=== PATIENT | female | born 1985 | race Caucasian/White ===

== ENCOUNTER 2017-04-10 15:23 | Emergency (ER) | payer OTHER ==
[~2017-04-10] VITALS: Ht 147.3 cm; Wt 85.8 kg
[~2017-04-10 15:23] MED LIST: ACET-787 PO
[2017-04-10 15:27] VITALS: BP 138/90
--- NOTE | 2017-04-10 15:47 | NUR ---
PT AMBULATED TO BED 11.
--- NOTE | 2017-04-10 15:50 | NUR ---
31F BIB MOTHER C/O RASH TO BL ARMS X 1 WEEK. PT STATES " I THINK SOMETHING BIT ME".DENIES N/V/D; SKIN IS PINK/WARM/DRY; AAOX4 WITH EVEN AND STEADY GAIT; LUNGS CLEAR BL; PATIENT STATES PAIN OF 0/10 AT THIS TIME; PATIENT POSITIONED FOR COMFORT; HOB ELEVATED; BEDRAILS UP X2; BED DOWN. ER MD MADE AWARE OF PT STATUS.
--- NOTE | 2017-04-10 15:54 | NUR ---
Dr. Ferrara evaluating patient at bedside.
[2017-04-10] MEDS ORDERED: diphenhydrAMINE 50 MG/ML VIAL IM ONE (16:00)
[2017-04-10] MEDS ORDERED: methylPREDNISolone SS 125 MG in WATER STERILE 2 ML IM ONE (16:00)
--- NOTE | 2017-04-10 16:41 | NUR ---
Patient appears to be resting comfortably in bed. Vital Signs within normal limits. Respirations even and unlabored.WILL CONTINUE TO MONITOR.
[2017-04-10 16:50] VITALS: BP 127/80
--- NOTE | 2017-04-10 16:50 | NUR ---
Patient discharged with v/s stable. Written and verbal after care instructions given and explained. Patient alert, oriented and verbalized understanding of instructions. Ambulatory with steady gait. All questions addressed prior to discharge. ID band removed. Patient advised to follow up with PMD. Rx of ATARAX & PREDNISONE given. Patient educated on indication of medication including possible reaction and side effects. Opportunity to ask questions provided and answered.
== END 2017-04-10 16:50 | disposition home or self-care (01) ==
LOC: MED 15:23
DX: S80.861A Insect bite (nonvenomous), right lower leg, initial encounter (principal); S80.862A Insect bite (nonvenomous), left lower leg, initial encounter; S40.862A Insect bite (nonvenomous) of left upper arm, initial encounter; S40.861A Insect bite (nonvenomous) of right upper arm, initial encounter; W57.XXXA Bitten or stung by nonvenomous insect and other nonvenomous arthropods, initial encounter; Y93.89 Activity, other specified; Y92.89 Other specified places as the place of occurrence of the external cause; Y99.8 Other external cause status
CPT/HCPCS: 96372; 99284; J1200; J2930

== ENCOUNTER 2018-02-04 19:31 | Emergency (ER) | payer OTHER ==
[~2018-02-04] VITALS: Ht 147.3 cm; Wt 89.8 kg
[2018-02-04 19:40] VITALS: BP 144/90
--- NOTE | 2018-02-04 19:44 | NUR ---
TO LOBBY AMBULATORY, A/W BED, KENDRICK LEVINE NOTED
--- NOTE | 2018-02-04 20:14 | NUR ---
PT PRESENTS TO ED WITH PAIN TO CORNER OF RIGHT FIRST TOE X2 DAYS WITH 8/10 PAIN. REDNESS, EDEMA, AND SCANT BLOOD PRESENT. CMS INTACT. PT STATES THROBBING SEVERE PAIN WITH AMBULATION. VSS. PT POSITIONED IN BED FOR COMFORT. ER MD AWARE. CONTINUE TO MONITOR.
--- NOTE | 2018-02-04 20:14 | NUR ---
PT TAKEN TO BED 2
[2018-02-04] MEDS ORDERED: LIDOCAINE 2% 1000 MG/50 ML VIAL INJ ONE (20:55)
[2018-02-04] MEDS ORDERED: NEOMYCIN/POLYMYXIN/BACITRACIN 0.9 GM/1 PKT TP ONE (20:55)
--- NOTE | 2018-02-04 21:00 | NUR ---
DR KINCAID AT BEDSIDE PERFORMING TOENAIL REMOVAL.
--- NOTE | 2018-02-04 21:19 | NUR ---
PT R BIG TOE APPLIED NEOSPORIN, WRAPPED WITH NON ADHERENT DRESSING AND WRAPPED IN ROLLER BANDAGE. +CSM
--- NOTE | 2018-02-04 21:19 | NUR ---
DR KINCAID COMPLETED PROCEUDRE. PT TOLERATED THE PROCEDURE WELL. FOOT CLEANED, ATBX OINT APPLIED, WRAPPED WITH NON-ADHESIVE BALTAZAR BY EMT. VSS. CONTINUE TO MONITOR.
[2018-02-04 21:39] VITALS: BP 144/90
== END 2018-02-04 21:39 | disposition home or self-care (01) ==
LOC: MED 19:31
DX: L60.0 Ingrowing nail (principal); E03.9 Hypothyroidism, unspecified
CPT/HCPCS: 11730; 99283; J2001

== ENCOUNTER 2018-02-06 15:51 | Emergency (ER) | payer OTHER ==
[~2018-02-06] VITALS: Ht 147.3 cm; Wt 81.6 kg
[2018-02-06 16:00] VITALS: BP 128/77
--- NOTE | 2018-02-06 16:11 | NUR ---
Evin diazlana in EDM - 02/06/18 at 1611 by JEANNETTE Rash to lisy lower legs and upper arms x 3 days, +pruritis, denies n/v/d/fevers. States "they burn in sensation" Denies new meds/food med hx:sciatica rx: norco, ibuprofen,
--- NOTE | 2018-02-06 16:12 | NUR ---
brought in by freeman for rt foot wound check, was seen here 2 days ago and informed to return for wound check. rt big toe., appears dry, no acitve bleeding, no c/o pain at this time. med hx: mental retardation rx: anbx
--- NOTE | 2018-02-06 16:45 | NUR ---
AAO PT WITH FAMILY AT BEDSIDE NO ACUTE DISTRESS WAITING FOR MD'S ORDERS
--- NOTE | 2018-02-06 17:15 | NUR ---
PT UPDATED BY DR MARTINEZ AT BEDSIDE
[2018-02-06 18:01] VITALS: BP 126/71
--- NOTE | 2018-02-06 18:01 | NUR ---
PT LEFT WITHOUT DISCHARGE INSTRUCTIONS, DR MARTINEZ NOTIFIED
== END 2018-02-06 18:01 | disposition left against medical advice (07) ==
LOC: MED 15:51
DX: Z48.01 Encounter for change or removal of surgical wound dressing (principal); E03.9 Hypothyroidism, unspecified; F79 Unspecified intellectual disabilities
CPT/HCPCS: 99283

== ENCOUNTER 2018-05-05 08:58 | Emergency (ER) | payer OTHER ==
[~2018-05-05] VITALS: Ht 152.4 cm; Wt 91.6 kg
[2018-05-05 09:11] VITALS: BP 132/87
[2018-05-05] MEDS: LIDOCAINE 2% 1000 MG/50 ML VIAL INJ ONE (09:53)
[2018-05-05] MEDS: DEXAMETHASONE 10 MG/ML VIAL IM ONE (09:53)
[2018-05-05 10:08] VITALS: BP 132/87
== END 2018-05-05 10:09 | disposition home or self-care (01) ==
LOC: MED 08:58
DX: M54.41 Lumbago with sciatica, right side (principal); E03.9 Hypothyroidism, unspecified; R03.0 Elevated blood-pressure reading, without diagnosis of hypertension; Z79.899 Other long term (current) drug therapy
CPT/HCPCS: 20552; 99284; J1100; J2001

== ENCOUNTER 2018-06-18 16:40 | Emergency (ER) | payer OTHER ==
[~2018-06-18] VITALS: Ht 160 cm; Wt 89.4 kg
[2018-06-18 16:59] VITALS: BP 165/78
[2018-06-18 18:23] VITALS: BP 151/70
== END 2018-06-18 18:23 | disposition home or self-care (01) ==
LOC: MED 16:40
DX: M54.31 Sciatica, right side (principal); E03.9 Hypothyroidism, unspecified; G80.9 Cerebral palsy, unspecified; Z79.891 Long term (current) use of opiate analgesic
CPT/HCPCS: 99283

== ENCOUNTER 2018-07-13 14:59 | Emergency (ER) | payer OTHER ==
[~2018-07-13] VITALS: Ht 144.8 cm; Wt 83.9 kg
[2018-07-13 15:19] VITALS: BP 153/91
--- NOTE | 2018-07-13 15:30 | NUR ---
C32/F BIB MOM C/O R FOOT PAIN X 2 WEEKS, - REDNESS, - SWELLING, HURT WITH AMBULATION , NO INJURY OR TRAUMA PMH: THYROIDS MEDS: NONE PATIENT STATES PAIN OF 4/10 AT THIS TIME. PATIENT POSITIONED FOR COMFORT; HOB ELEVATED; BEDRAILS UP X2; BED DOWN. ER MD MADE AWARE OF PT STATUS.
[2018-07-13 16:15] VITALS: BP 130/85
--- NOTE | 2018-07-13 16:15 | NUR ---
Patient discharged with v/s stable. Written and verbal after care instructions given and explained. Patient alert, oriented and verbalized understanding of instructions. Ambulatory with by parent with walker. All questions addressed prior to discharge. ID band removed. Patient advised to follow up with PMD. Rx of CURAD MEDIPLAST AND ACETAMINOPHEN 500MG given. Patient educated on indication of medication including possible reaction and side effects. Opportunity to ask questions provided and answered.
== END 2018-07-13 16:15 | disposition home or self-care (01) ==
LOC: MED 14:59
DX: L84 Corns and callosities (principal); E07.9 Disorder of thyroid, unspecified; G80.9 Cerebral palsy, unspecified; Z79.891 Long term (current) use of opiate analgesic
CPT/HCPCS: 99282

== ENCOUNTER 2019-01-04 13:49 | Emergency (ER) | payer OTHER ==
[~2019-01-04] VITALS: Ht 154.9 cm; Wt 99.8 kg
[2019-01-04 13:58] VITALS: BP 132/73
--- NOTE | 2019-01-04 13:58 | NUR ---
PATIENT AMBULATED TO ER BED 3.
--- NOTE | 2019-01-04 14:12 | NUR ---
PT C/O BEE STING TO R FOREARM SINCE YESTERDAY. NOTED SWELLING AND REDNESS TO R ARM. STATES OF HAVING ITCHING AND PAIN TO TOUCH AT THE SITE. DENIES ANY N, V , FEVRE OR CHILLS AT THIS TIME. NO RESP DISTRESS, 98% ON RA . LYING COMFORTABLY IN HER BED. PT IS AAOX4, DENIES ANY MEDICAL . HAS SLIGHT MUMBLING/SLURRY SPEECH AT BASELINE. ABLE TO COMMUNICATE AND COMPREHENDS THE CONVERSATION. ER MD TO SEE THE PT. PMH--MENTAL DELAY NKA
[2019-01-04] MEDS ORDERED: DEXAMETHASONE 10 MG/ML VIAL IM ONE (14:25)
[2019-01-04 14:57] VITALS: BP 132/73
--- NOTE | 2019-01-04 14:57 | NUR ---
Patient discharged with v/s stable. Written and verbal after care instructions given and explained. Patient alert, oriented and verbalized understanding of instructions. Ambulatory with steady gait. All questions addressed prior to discharge. ID band removed. Patient advised to follow up with PMD. Rx of DIPHENHYDRAMINE, KEFLES, PREDNISONE given. Patient educated on indication of medication including possible reaction and side effects. Opportunity to ask questions provided and answered.
== END 2019-01-04 14:57 | disposition home or self-care (01) ==
LOC: MED 13:49
DX: T63.441A Toxic effect of venom of bees, accidental (unintentional), initial encounter (principal); E07.9 Disorder of thyroid, unspecified; Z79.899 Other long term (current) drug therapy; Y92.89 Other specified places as the place of occurrence of the external cause
CPT/HCPCS: 96372; 99283; J1100; Q0163

== ENCOUNTER 2019-05-10 14:22 | Emergency (ER) | payer OTHER ==
[~2019-05-10] VITALS: Ht 147.3 cm; Wt 93.1 kg
[2019-05-10 14:35] VITALS: BP 105/62
--- NOTE | 2019-05-10 14:40 | NUR ---
33/F BIB FAMILY W/ C/O COUGH , SORE THROAT X 2 WEEKS. HX: THYROID DZ. PATIENT STATES PAIN OF 10/10 AT THIS TIME. PATIENT POSITIONED FOR COMFORT; HOB ELEVATED; BEDRAILS UP X1; BED DOWN. ER MD MADE AWARE OF PT STATUS.
--- NOTE | 2019-05-10 14:51 | NUR ---
X RAY AT BEDSIDE
--- NOTE | 2019-05-10 15:00 | NUR ---
Patient being evaluated by JERED BARBOUR at bedside.
[2019-05-10 17:21] LABS: BASOPHILS # (AUTO) 0.1 K/uL (0.00-0.22); BASOPHILS % (AUTO) 0.5 % (0.0-2.0); EOSINOPHILS # (AUTO) 0.1 K/uL (0-0.4); EOSINOPHILS % (AUTO) 0.9 % (0.0-4.0); HEMATOCRIT 42.8 % (36-48); HEMOGLOBIN 13.6 g/dL (12.0-16.0); LYMPHOCYTES # (AUTO) 2.7 K/uL (2.5-16.5); LYMPHOCYTES % (AUTO) 23.1 % (20.5-51.1); MEAN CORPUSCULAR HEMOGLOBIN 26 pg (27-31); MEAN CORPUSCULAR HGB CONC 32 g/dL (33-37); MEAN CORPUSCULAR VOLUME 82.4 fL (80-94); MONOCYTES # (AUTO) 0.8 K/uL (0.8-1.0); MONOCYTES % (AUTO) 7.1 % (1.7-9.3); NEUTROPHILS # (AUTO) 7.9 K/uL (1.8-7.7); NEUTROPHILS % (AUTO) 68.4 % (42.2-75.2); PLATELET COUNT (AUTO) 308 K/uL (140-450); RED CELL DISTRIBUTION WIDTH 14.1 % (11.6-13.7); WHITE BLOOD COUNT (AUTO) 11.5 K/uL (4.8-10.8)
[2019-05-10 18:08] LABS: CARBON DIOXIDE 30.3 mmol/L (21-32); CREATININE 0.8 mg/dL (0.6-1.3); POTASSIUM 3.3 mmol/L (3.5-5.1)
[2019-05-10 18:15] LABS: ALBUMIN 2.9 g/dL (3.4-5.0); TOTAL BILIRUBIN 0.1 mg/dL (0.0-1.0)
--- NOTE | 2019-05-10 18:31 | NUR ---
PT TAKEN TO CT VIA W/C, ACCOMPANIED BY COMMUNITY SERVICE MANAGER.
--- NOTE | 2019-05-10 19:01 | NUR ---
Pt report given to TU ZAIDI. Transfer of care at this time.
--- NOTE | 2019-05-10 19:06 | NUR ---
RECEIVED REPORT FROM DYAN GARDUNO. TRANSFER OF CARE AT THIS TIME.
[2019-05-10] MEDS ORDERED: cefTRIAXone 1,000 MG in LIDOCAINE MPF 1% 2.1 ML IM ONE (19:25)
[2019-05-10 19:50] VITALS: BP 118/68
--- NOTE | 2019-05-10 19:51 | NUR ---
CPatient discharged with v/s stable. Written and verbal after care instructions given and explained. Patient alert, oriented and verbalized understanding of instructions. Ambulatory with steady gait. All questions addressed prior to discharge. ID band removed. Patient advised to follow up with PMD. Rx of AZITHROMYCIN AND PROMETHAZINE given. Patient educated on indication of medication including possible reaction and side effects. Opportunity to ask questions provided and answered.
== END 2019-05-10 19:51 | disposition home or self-care (01) ==
LOC: MED 14:22
DX: J18.9 Pneumonia, unspecified organism (principal); E07.9 Disorder of thyroid, unspecified; Z79.899 Other long term (current) drug therapy
CPT/HCPCS: 36415; 71045; 71270; 80053; 81002; 81025; 85025; 96372; 99284; J0696; J2001; Q0092; Q9967

== ENCOUNTER 2019-10-29 18:17 | Emergency (ER) | payer OTHER ==
[~2019-10-29] VITALS: Ht 147.3 cm; Wt 91.6 kg
[~2019-10-29 18:17] MED LIST changes: -ACET-787 PO; +HYDR-5191 PO
[2019-10-29 18:21] VITALS: BP 133/64
--- NOTE | 2019-10-29 18:24 | NUR ---
PT TAKEN TO BED 12.
--- NOTE | 2019-10-29 18:30 | NUR ---
PT C/O BEE STING TO HIS LEFT DORSAL FOOT APPRO 2 HOURS AGO WITH BURNING AND ITCHY SENSATIONS, +1 EDEMA, AND ERYTHEMA. DENIES NUMBNESS OR TINGLING ON THE LEFT FOOT. PATIENT STATES PAIN OF 8/10 AT THIS TIME; VSS; PATIENT POSITIONED FOR COMFORT; HOB ELEVATED; BEDRAILS UP X1; BED DOWN. ER MD MADE AWARE OF PT STATUS.
[2019-10-29] MEDS ORDERED: predniSONE 20 MG TAB PO ONE (18:45)
[2019-10-29] MEDS ORDERED: FAMOTIDINE 20 MG TAB PO ONE (18:45)
--- NOTE | 2019-10-29 18:58 | NUR ---
COLD PACK PROVIDED TO PT AND PLACED ON THE AFFECTED AREA.
--- NOTE | 2019-10-29 19:11 | NUR ---
Pt report given to DYAN Wu. Transfer of care at this time.
--- NOTE | 2019-10-29 19:11 | NUR ---
Pt report RECEIVED FROM DYAN MORTENSEN. ASSUMED care OF PT at this time.
[2019-10-29 19:27] VITALS: BP 129/61
--- NOTE | 2019-10-29 19:27 | NUR ---
Patient discharged with v/s stable. Written and verbal after care instructions given and explained. Patient alert, oriented and verbalized understanding of instructions. Ambulatory with steady gait. All questions addressed prior to discharge. ID band removed. Patient advised to follow up with PMD. Rx of BENEDRYL, PREDNSONE given. Patient educated on indication of medication including possible reaction and side effects. Opportunity to ask questions provided and answered.
== END 2019-10-29 19:27 | disposition home or self-care (01) ==
LOC: MED 18:17
DX: T63.441A Toxic effect of venom of bees, accidental (unintentional), initial encounter (principal); L25.9 Unspecified contact dermatitis, unspecified cause; Y92.89 Other specified places as the place of occurrence of the external cause
CPT/HCPCS: 99284; J7512; Q0163

== ENCOUNTER 2020-03-13 08:09 | Emergency (ER) | payer OTHER ==
[~2020-03-13] VITALS: Ht 149.9 cm; Wt 91.2 kg
[2020-03-13 08:17] VITALS: BP 126/81
[2020-03-13] MEDS ORDERED: IBUPROFEN 400 MG TAB PO ONE (09:10)
== END 2020-03-13 09:48 | disposition home or self-care (01) ==
LOC: MED 08:09
DX: M54.5 Low back pain (principal); E03.9 Hypothyroidism, unspecified; Z79.899 Other long term (current) drug therapy
CPT/HCPCS: 99282